=== PATIENT | male | born 1960 | race Caucasian/White ===

== ENCOUNTER 2016-07-20 01:10 | Day surgery (SDC) | payer OTHER ==
[~2016-07-20] VITALS: Ht 177.8 cm; Wt 103.0 kg
[2016-07-20] VITALS (10 sets, daily range): BP systolic 124–152; BP diastolic 72–89; PULSE 50–72; RESP 14–16; O2SAT 96–98
[~2016-07-20 01:10] MED LIST: AMLO2.5T PO; ASPI325T32 PO; ISOS30TA4 PO; LIP40 PO; LISI40TA PO; METO50TA3 PO; NITR0.4T6 SL
--- NOTE | 2016-07-20 12:00 | NUR ---
ADMISSION NOTE MALE PT ADMITTED FOR HEART CATH. DISCUSSED PLAN OF CARE WITH PT AND FAMILY. SEE ADMIT AND FLOW SHEET
[2016-07-20 12:34] LABS: BASOPHILS % (AUTO) 0.2 % (0-3); MONOCYTES % (AUTO) 8.7 % (4-12); Mean Corpuscular Hemoglobin 27.9 pg (27.0-35.0); Mean Corpuscular Volume 85.5 fL (81-100); NEUTROPHILS % (AUTO) 64.2 % (40-74); Platelet Count 121 bil/L (150-400)
[2016-07-20] MEDS ORDERED: Heparin 1,000 Units/500 mL NS Premix IV ONE (12:50)
[2016-07-20] MEDS ORDERED: Heparin 5,000 Units/500 mL NS Premix IV ONE (12:50)
[2016-07-20] MEDS ORDERED: 0.9% Sodium Chloride 1,000 ML ONE (13:26)
[2016-07-20] MEDS ORDERED: fentaNYL-PF 50 mCg/mL 2 mL Inj ONE (13:48)
[2016-07-20] MEDS ORDERED: Nitroglycerin 50,000 mcg/250 mL D5W Premix IV ONE (14:20)
[2016-07-20] MEDS ORDERED: Atropine 1 mg/10 mL (Code) Syringe ONE (14:24)
[2016-07-20] MEDS ORDERED: 0.9% Sodium Chloride 0 ML ONE (14:33)
[2016-07-20] MEDS ORDERED: Adenosine Inj 20 ML IV ONE ×2 (14:33→14:51)
[2016-07-20] MEDS ORDERED: 0.9% Sodium Chloride 100 ML ONE (14:52)
[2016-07-20] MEDS ORDERED: Atropine 1 mg/10 mL (Code) Syringe IVPUSH PRN (16:00)
[2016-07-20] MEDS ORDERED: HYDROcodone-APAP 5-325 mg Tablet PO PRN (16:00)
[2016-07-20] MEDS ORDERED: Ondansetron 2 mg/mL 2 mL Inj IVPUSH PRN (16:00)
[2016-07-20] MEDS ORDERED: 0.9% Sodium Chloride 1,000 ML IV PRN (16:00)
[2016-07-20] MEDS ORDERED: 0.9% Sodium Chloride 250 ML IV PRN (16:00)
--- NOTE | 2016-07-20 18:20 | PCM.CVCATH ---
Cardiac Cath Report Date of Service Jul 20, 2016 Primary Indication Typical exertional angina with prior abnormal stress EKG. Procedure 1. Left heart catheterization 2. Left ventricular angiogram excellent 3. Selective coronary angiogram 4. Right femoral angiogram Procedure Details The patient was brought into the catheterization laboratory. The patient was nothing by mouth since midnight. The patient was prepped and sterilized in the appropriate fashion. Local anesthetic was given to the right groin region with lidocaine 1%. A percutaneous stick to the right groin region with an 18-gauge Seldinger needle was attempted. A 6 Algerian sheath was inserted into the right femoral artery. A 6 Algerian FL 4 diagnostic catheter was advanced and engaged into the left main. The left coronary angiography was performed in multiple views. The catheter was exchanged over the wire for a 6 Algerian FR4 diagnostic catheter. The catheter was engaged in the right coronary ostium and the right coronary angiography was performed in multiple views. The catheter was removed over the wire and exchanged for 6 Algerian angle pigtail catheter. LV hemodynamics were recorded. Left ventricular angiography was performed at 12 mL /s for total 36 mL of contrast. LV pullback was performed. All catheters were removed. The right femoral angiogram was performed to evaluate for closure device. Case was handed over to Dr. Gunn to proceed with FFR of the ostial LAD and obtuse marginal vessel. No PCI was performed. Hemostasis was obtained with Perclose. The patient was transferred back to special observation unit for post procedural monitoring. There were no immediate complications. Total fluoroscopy time: 5.3 minutes Total fluoroscopy dosage: 956 mGy Estimated blood loss: 15 mL Total contrast: 125 mL Findings 1. Hemodynamics: The left ventricular systolic pressure was estimated at 127 mmHg and the left ventricular end-diastolic pressure was estimated at 18 mmHg. There is no significant gradient during pullback. The aortic systemic pressure is 122/67 mmHg. 2. Selective coronary angiography: A. Left main: There artery has no evidence of significant disease. It bifurcates into the left anterior and left circumflex arteries. B. Left anterior descending artery: There is a 50-60% short and an eccentric stenosis at the ostium of the LAD. Otherwise this is a large vessel which provides 2 large diagonal arteries. The first diagonal artery has minimal ostial disease. The LAD wraps around the apex quite extensively. C. Left circumflex artery: This is a large dominant vessel. There is a 60% stenosis at the midportion of a bifurcated 2nd obtuse marginal vessel. The left circumflex artery provides a large posterior descending artery. D. Right coronary artery: This is a small nondominant vessel without any significant disease. 3. Left ventricular angiogram: The ejection fraction is around 65 %. There is no appreciable LV wall motion abnormalities. 4. Right femoral angiogram: There is no evidence of significant disease. Summary 1. Moderate stenosis located at the ostium of the LAD and midportion of the obtuse marginal artery. 2. Large dominant left circumflex artery. 3. Normal LV systolic function without focal wall motion abnormalities. 4. FFR performed by Dr. Gunn which showed no hemodynamic compromise in both the ostial LAD and mid obtuse marginal artery. Recommendations Continue with aggressive medical therapy since FFR was not conclusive for hemodynamic stenosis. However, both the LAD and LCx were in the range of 0.81- 0.84 during adenosine infusion which is near the cutoff for intervention. If patient continues to have Class II-III angina after maximizing medical therapy then a discussion about intervention will need to take place. Given the anatomy of his coronary lesions, he will most likely require coronary bypass surgery. copies to: Alexy Lara MD, Oscar J MD Jul 20, 2016 18:20
--- NOTE | 2016-07-20 19:48 | DI95 ---
[address] [address] INTERVENTIONAL CARDIAC CATHETERIZATION PATIENT: KANDIS BRIDGES : 1960 MR#: [id number] ADMIT: 07/20/2016 JOB ID: [id number] DATE: 07/20/2016 PATIENT PROFILE: The patient is a 56-year-old male with angina pectoris. PROCEDURE: 1. FFR of the proximal left anterior descending. 2. FFR of the second obtuse marginal branch. 3. Vascular closure device, Perclose. COMPLICATION: None. PROCEDURE IN DETAIL: Following diagnostic angiogram performed by Dr. Dickson, heparin 4,000 units were given. A 6-Spanish JL4 guide was advanced to the left coronary ostium. A flow wire was directed into the left anterior descending artery. Adenosine was given infusion IV. FFR was measured. The attention was then turned to the circumflex artery. The flow wire was redirected into the second obtuse marginal branch. Adenosine was given infusion IV. FFR was measured. The procedure was terminated. Following sheath removal, hemostasis was achieved by using a Perclose device. The patient tolerated the procedure well. She was transferred to [facility] in good condition. RESULTS: 1. FFR of the proximal left anterior descending is 0.84, which indicates nonhemodynamic significant stenosis. 2. FFR of the second obtuse marginal branch is 0.81, which indicates nonhemodynamic significant stenosis. MTDD
== END 2016-07-20 23:59 | disposition home or self-care (01) ==
LOC: SOUO 01:10
PROVIDERS: ATTEND Internal Medicine Cardiovascular Disease
DX: I25.118 Atherosclerotic heart disease of native coronary artery with other forms of angina pectoris (principal); I10 Essential (primary) hypertension; Z79.82 Long term (current) use of aspirin; E78.00 Pure hypercholesterolemia, unspecified
CPT/HCPCS: 36415; 80048; 85025; 93458; 93571; 93572; 99152; 99153; C1760; C1769; C1887; J0153; J1200; J1644; J2060; J2250; J3010; J7030; Q9967